=== PATIENT | male | born 1975 | race African-American/Black ===

== ENCOUNTER 2018-04-27 22:24 | Emergency (ER) | payer OTHER ==
[~2018-04-27] VITALS: Ht 180.3 cm; Wt 128.5 kg
[~2018-04-27 22:24] MED LIST: FLEET ENEMA-AD118 ML PR; MILK OF MAGN PO; NAPROXEN500 MG PO; ZOFRAN ODT4 MG PO
[2018-04-27 23:29] LABS: APPEARANCE CLEAR ((CLEAR)); BILIRUBIN NEGATIVE; BLOOD SMALL; COLOR YELLOW ((YELLOW)); GLUCOSE (STRIP) NEGATIVE; KETONES NEGATIVE; LEUKOCYTES TRACE; NITRITE NEGATIVE; PROTEIN (STRIP) NEGATIVE; SPECIFIC GRAVITY 1.024 (1.000-1.030)
[2018-04-27 23:34] LABS: BACTERIA RARE /HPF; EPITHELIAL CELLS RARE /HPF; MUCUS TRACE /LPF; RED BLOOD CELLS 20-30 /HPF (0-5); UCUL ADDED? YES
[2018-04-27 23:36] LABS: HEMATOCRIT 40.3 % (38.0-50.0); MCH 32.2 PG (29.0-34.0); MCHC 34.7 G/DL (30.0-36.0); MCV 92.6 FL (86-99); PLATELET COUNT 268 K/uL (156-360); RBC DIS.WIDTH-SD 40.5 % (39-53); RED BLOOD COUNT 4.35 M/uL (4.00-5.50); WHITE BLOOD COUNT 10.7 K/uL (4.1-10.2)
[2018-04-27 23:42] LABS: CHLORIDE 107 mEq/L (99-109); POTASSIUM 3.9 mEq/L (3.7-5.4); SODIUM 144 mEq/L (136-147)
[2018-04-27 23:45] LABS: GLUCOSE 102 mg/dL (70-99); TOTAL PROTEIN 7.4 g/dL (6.4-8.3)
[2018-04-27 23:47] LABS: TOTAL BILIRUBIN 0.6 mg/dL (0.0-1.0)
[2018-04-27 23:48] LABS: ALKALINE PHOSPHATASE 84 IU/L (3-129); CREATININE 1.2 mg/dL (0.6-1.3); GFR ESTIMATE (CALCULATED) > 59 mL/min/ (58.99-99999)
[2018-04-27 23:49] LABS: UREA NITROGEN (BUN) 15 mg/dL (9-23)
[2018-04-27 23:50] LABS: AST (GOT) 21 IU/L (2-34)
[2018-04-27 23:51] LABS: ALT (GPT) 23 IU/L (3-49)
[2018-04-28] MEDS ORDERED: FLOMAX0.4 MG PO (01:41)
[2018-04-28] MEDS ORDERED: ZOFRAN ODT4 MG PO (01:41)
[2018-04-28] MEDS ORDERED: PERCOCET 5/31 TABLET PO (01:41)
[2018-04-28] MEDS ORDERED: CIPRO500 MG PO (01:41)
[2018-04-28 01:55] VITALS: BP 147/110
== END 2018-04-28 01:57 | disposition home or self-care (01) ==
LOC: EME 22:24
DX: N13.2 Hydronephrosis with renal and ureteral calculous obstruction (principal); Z87.442 Personal history of urinary calculi; Z87.891 Personal history of nicotine dependence
CPT/HCPCS: 74176; 80053; 81003; 85027; 87086; 99281; 99285; J1885; J2405; J3010; J7030